=== PATIENT | male | born 1945 | race Caucasian/White ===

== ENCOUNTER 2020-05-16 07:59 | Observation (INO) | payer MEDICARE, SELFPAY ==
--- NOTE | 2020-05-16 | CT_ITS ---
EXAMINATION: CT HEAD WITHOUT CONTRAST CLINICAL INFORMATION: Altered mental status. COMPARISON: None TECHNIQUE: Contiguous axial imaging was performed from the skull base to vertex without intravenous administration of contrast. This CT examination was performed using dose optimization techniques as appropriate, variously including the following: *Automated exposure control *Adjustment of mA and/or kV according to patient size (this includes techniques or standardized protocols for targeted exams where dose is matched to indication/reason for exam; i.e. extremities or head) *Use of iterative reconstruction technique DLP: 897 mGy-cm FINDINGS: Some of the images were motion degraded and repeated. Atherosclerotic calcifications of cavernous carotid arteries. Patchy hypoattenuation within supratentorial white matter of both cerebral hemispheres. 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 The carbajal-white matter differentiation is maintained. No evidence of an acute major vascular territory infarction. No hemorrhage, extra axial fluid collection or focal mass effect. Mild atrophy of cerebral hemispheres with commensurate prominence of the ventricles and sulci. No hydrocephalus. No acute findings in the posterior fossa. The calvarium has an intact appearance. The visualized paranasal sinuses and mastoid air cells are well aerated. IMPRESSION: * No intracranial hemorrhage or other acute intracranial pathology. * Mild cerebral atrophy and fatty suggestive of chronic moderate microangiopathy.
--- NOTE | 2020-05-16 | XR_ITS ---
EXAMINATION: XR CHEST CLINICAL INFORMATION: Chest pain. COMPARISON: None TECHNIQUE: Frontal view of the chest was obtained. FINDINGS: No significant abnormality is noted involving the heart, lungs, mediastinum, or soft tissues. Scoliotic and degenerative spondylosis related changes are noted in the spine. IMPRESSION: No radiographic evidence of acute cardiopulmonary disease.
[2020-05-16 08:11] VITALS: BP 122/80; BP 124/83; PULSE 73; PULSE 76; RESP 14; TEMP 36.5; O2SAT 97; O2SAT 98; BMI 21.2
[2020-05-16 08:18] LABS: Glucose, Whole Blood 93 mg/dL (60-115)
--- NOTE | 2020-05-16 08:23 | ED_ITS ---
HPI - Altered Mental Status General Chief Complaint: Altered Mental Status Time Seen by Provider: 05/16/20 08:12 Source: EMS Mode of arrival: EMS Limitations: altered mental status History of Present Illness HPI narrative: 75 years old man was brought to ER by ambulance because altered mental status. Pt unable to give full hx . I spoke with his girfriend Mariam [id number] who tell me that he got up OK this Am then she found in bed poorly responsive,pale with left arm shaky complaint: altered mental status Onset (ago): hour(s) (1) Timing confirmed by: other (girfriend) Severity: moderate Consistency of symptoms: waxing and waning Treatments prior to arrival: other (none) Related Data Allergies Allergy/AdvReac Type Severity Reaction Status Date / Time No Known Allergies Allergy Verified 05/16/20 08:13 Review of Systems ENT: Denies vertigo Cardiovascular: Cardiovascular: Reports no additional cardiovascular complaints, Denies chest pain, Denies syncope, Denies rapid heart rate and Denies dyspnea on exertion Respiratory: Respiratory: Reports no additional respiratory complaints and Denies dyspnea on exertion Gastrointestinal: Gastrointestinal: Denies abdominal pain Neurologic: Denies vertigo, Denies syncope and Denies focal weakness COUNT INCLUDES THE [facility] Past Medical History Medical History (Updated 05/16/20 @ 08:18 by Katy Williamson) No known health problems No known health problems No known health problems Right wrist fracture Social History Social History Alcohol intake: former Smoking Status: Never smoker Use of substances other than those prescribed or required for medical reasons: No Advance Directives: No Advance Directives Information Provided: Yes Physical Exam Vital Signs: Vital Signs: Vital Signs Temp Pulse Resp BP Pulse Ox 05/16/20 08:11 97.7 F 76 14 122/80 98 Body Mass Index 21.2 on examination he appear somewhat lethargic, he is able to tell me the month he knows that he is in the emergency department Const: Orientation/consciousness: oriented to place and oriented to time HENMT: Head: Yes normal to inspection General nose exam: Normal external nose present Face and sinus: Yes normal facial exam Mouth: Normal oral and palatal mucosa present Eyes: General: appearance normal, both eyes and all related structures Neck: Neck: Yes normal visual inspection, Yes full ROM and Yes no meningeal signs Chest: Chest palpation & inspection: normal inspection of the chest and normal palpation of entire chest wall Resp: Effort & Inspection: normal respiratory effort Cardio: Rate: regular rate Rhythm: regular rhythm GI: Inspection: Yes normal to inspection Palpation (GI): Soft to palpation, nontender and no guarding Skin: Other: pale skin General skin exam: no rashes or lesions noted Rashes: no rashes Neuro: General: oriented to place, oriented to time, no meningeal signs, no focal motor deficits, CN's II-XI intact bilaterally and normal sensation to monofilament Cranial nerves: Yes Bilaterally intact EOM present MDM - Altered Mental Status Lab Data Labs: Lab Results 05/16/20 Range/Units 08:09 POC Glucose 93 (60-115) mg/dL
--- NOTE | 2020-05-16 08:30 | PC.NURSE ---
pt assisted to standing position next to bed to obtain urine sample; pt very unsteady on feet
--- NOTE | 2020-05-16 08:30 | PC.NURSE ---
PT SLEEPY, AROUSABLE TO NAME. ORIENTED TO SELF, PLACE, TIME, BUT NOT TO REASON FOR BEING IN HOSPITAL. DELAY IN RESPONSE TO QUESTIONS AND COMMANDS, BUT SPEECH CLEAR. FACE SYMMETRICAL. + PERRLA. HAND GRASPS EQUAL. NO DRIFT. MOVING ALL EXTREMITIES. DR. ULLOA CALLED PT'S GIRLFRIEND, JAZMIN, WHO CONFIRMED THE REASON PT WAS SENT TO HOSPITAL IS FOR LETHARY AND DELAYED RESPONSE STARTING THIS MORNING WHEN PT WOKE UP.
--- NOTE | 2020-05-16 08:40 | PC.NURSE ---
dr. sarah whitlock with girlfriend, kelli, over phone; girlfriend confirms that pt has no medical diagnoses, has had no surgeries, is on no daily meds.
[2020-05-16 08:42] LABS: MANUAL DIFF FLAG NO
[2020-05-16 08:46] LABS: Basophils Percent Auto 0.9 % (0-2); Eosinophils Absolute Auto 0.1 X10*3/uL (0.0-0.4); Eosinophils Percent Auto 3.3 % (0-4); Hematocrit 39.5 % (42-52); Hemoglobin 12.8 g/dl (14.0-18.0); Imm Gran Abs Auto 0.01 X10*3/uL (0.00-0.03); Imm Gran Pct Auto 0.3 % (0.0-0.4); Lymphocytes Absolute Auto 0.9 X10*3/uL (1.2-4.9); Lymphocytes Percent Auto 25.8 % (20-40); Mean Corpuscular HGB Conc 32.4 g/dl (31.0-36.0); Mean Corpuscular Hemoglobin 31.5 pg (27.0-33.0); Mean Corpuscular Volume 97.3 fL (80-98); Mean Platelet Volume 10.6 fL (9.4-12.4); Monocytes Absolute Auto 0.4 X10*3/uL (0.1-1.2); Monocytes Percent Auto 10.6 % (2-11); Neutrophils Percent Auto 59.1 % (45-73); Platelet Count 178 X10*3/uL (160-400); Red Blood Count 4.06 X10*6/uL (4.60-5.80); Red Cell Distribution Width 13.7 % (11.0-16.0); White Blood Count 3.3 X10*3/uL (4.8-10.8)
[2020-05-16 09:00] LABS: Prothrombin Time 12.4 SEC (10.8-13.0)
[2020-05-16 09:03] LABS: Partial Thromboplastin Time 32.9 SEC (24.1-38.0)
[2020-05-16 09:05] LABS: Alanine Aminotransferase 23 U/L (0-40); Albumin Level 3.8 g/dL (3.5-5.0); Alkaline Phosphatase 73 U/L (39-117); Anion Gap 10 (12-20); Aspartate Amino Transferase 23 U/L (5-37); Bilirubin Total 0.2 mg/dL (0.0-1.0); Blood Urea Nitrogen 11 mg/dL (9-16); Carbon Dioxide 28 mmol/L (22-29); Chloride 108 mmol/L (96-108); Creatinine Clr Calc Pharmacy 64.1; Estimated Glomerular Filt Rate > 60; Glucose Random 78 mg/dL (60-115); Potassium 4.9 mmol/l (3.3-5.1); Sodium 141 mmol/L (135-145); Total Protein 6.1 g/dL (6.5-8.0)
[2020-05-16 09:08] LABS: Glucose Urine UA NEG (NEG); Leukocyte Esterase Urine NEG (NEG); Nitrite Urine NEG (NEG); Specific Gravity - Urine 1.025 (1.005-1.025); Urine Blood NEG (NEG); Urine Ketones NEG (NEG); Urine Protein NEG (NEG-TRACE)
[2020-05-16 09:11] LABS: Appearance Urine CLEAR; Color Urine YELLOW
[2020-05-16 09:11] LABS: Troponin-I High Sensitivity < 3.5 ng/L (<3.5-35.0)
[2020-05-16 10:38] VITALS: BP 156/98; PULSE 67; RESP 16; O2SAT 98
--- NOTE | 2020-05-16 11:08 | PC.NURSE ---
pt sleeping on stretcher in position of comfort, arousable to verbal stimuli. skin wpd. respiratons even and non labored. nsr on monitor. vss. plan to admit pt for observaton, per dr. osborn.
--- NOTE | 2020-05-16 11:33 | P.HPIM_ITS ---
History of Present Illness Date of Service: 05/16/20 <An James NP - Last Filed: 05/16/20 12:33> Chief Complaint: CONFUSION <An James NP - Last Filed: 05/16/20 12:33> 75-year-old man presented to the ER after being found to be unresponsive according to the patient's girlfriend. Patient is somewhat vague and encephalopathic during the examination. He was able to say his name, date and location however his movements seem very slow and he is disrobing himself and he will also pulled out his IV med. One he did state that he felt different today. He denies chest pain, shortness of breath, nausea, vomiting, diarrhea, visual changes, headache, recent trauma. brain CT was obtained which was negative for any acute abnormality. Chest x-ray was negative for consolidation or effusion, urinalysis negative for infection, vital signs are stable patient has no fever no leukocytosis noted actually his labs are all within normal limits. No focal deficits are noted. Will place patient on observation for further management of acute encephalopathy. <An James NP - Last Filed: 05/16/20 12:33> Review of Systems Review of Systems: Denies any recent fever chills or decrease in appetite respiratory denies any shortness of breath coverage production cardiovascular is adjustment of any PND or edema gastrointestinal denies any dysphagia abdominal pain nausea vomiting or diarrhea genitourinary denies any dysuria frequency or hematuria musculoskeletal denies any joint pain or swelling neuropsych denies any weakness or seizures, reported some dizziness. all other systems reviewed are negative <An James NP - Last Filed: 05/16/20 12:33> [facility] Medical History: Medical History (Updated 05/16/20 @ 12:17 by An James NP) Right wrist fracture <An James NP - Last Filed: 05/16/20 12:33> Family History: Family History (Updated 05/16/20 @ 12:18 by An James NP) Mother No problems noted. <An James NP - Last Filed: 05/16/20 12:33> Pertinent family history: mother with diabetes <An James NP - Last Filed: 05/16/20 12:33> Social History: Social History Alcohol intake: former Smoking Status: Never smoker Use of substances other than those prescribed or required for medical reasons: No Advance Directives: No Advance Directives Information Provided: Yes <An James NP - Last Filed: 05/16/20 12:33> Meds Allergies/Adverse reactions: Allergies Allergy/AdvReac Type Severity Reaction Status Date / Time No Known Allergies Allergy Verified 05/16/20 08:13 <An James NP - Last Filed: 05/16/20 12:33> Home medications: Home Medications Medication Instructions Recorded Confirmed Type No Known Home Meds 05/16/20 05/16/20 History <An James NP - Last Filed: 05/16/20 12:33> Physical Exam Vital Signs and Narrative: Vital Signs: Last Vital Signs Temp 97.7 F 05/16/20 08:11 Pulse 67 05/16/20 10:38 Resp 16 05/16/20 10:38 BP 156/98 H 05/16/20 10:38 Pulse Ox 98 05/16/20 10:38 Body Mass Index 21.2 <An James NP - Last Filed: 05/16/20 12:33> Appearing in no acute distress head is normocephalic atraumatic eyes pupils are PERRLA sclera is anicteric mouth throat mucous membranes are intact and moist neck is supple no lymphadenopathy, no JVD noted lung sounds are clear to auscultation heart regular rate rhythm, clear S1, S2 positive bowel sounds, abdomen is soft, nontender neuro patient is alert x3, no focal deficits, normal motor and sensory function <An James NP - Last Filed: 05/16/20 12:33> Results Labs Labs: Laboratory Tests 05/16/20 05/16/20 05/16/20 08:09 08:38 08:38 WBC 3.3 L RBC 4.06 L Hgb 12.8 L Hct 39.5 L MCV 97.3 MCH 31.5 MCHC 32.4 RDW 13.7 Plt Count 178 MPV 10.6 Immature Gran % (Auto) 0.3 Neut % (Auto) 59.1 Lymph % (Auto) 25.8 [place] % (Auto) 10.6 Eos % (Auto) 3.3 Baso % (Auto) 0.9 Lymph # (Auto) 0.9 L [place] # (Auto) 0.4 Eos # (Auto) 0.1 Baso # (Auto) 0.0 Abs Immat Gran (auto) 0.01 Absolute Neuts (auto) 2.0 Absolute Nucleated RBC 0.000 Nucleated RBC % (auto) 0.0 PT 12.4 INR 1.0 APTT 32.9 Sodium Potassium Chloride Carbon Dioxide Anion Gap BUN Creatinine Estim Creat Clear Calc Estimated GFR POC Glucose 93 Random Glucose Calcium Total Bilirubin AST ALT Alkaline Phosphatase Troponin I High Sens Total Protein Albumin Urine Color Urine Appearance Urine pH Ur Specific [place] Urine Protein Urine Glucose (UA) Urine Ketones Urine Blood Urine Nitrite Ur Leukocyte Esterase 05/16/20 05/16/20 05/16/20 08:38 08:38 08:50 WBC RBC Hgb Hct MCV MCH MCHC RDW Plt Count MPV Immature Gran % (Auto) Neut % (Auto) Lymph % (Auto) [place] % (Auto) Eos % (Auto) Baso % (Auto) Lymph # (Auto) [place] # (Auto) Eos # (Auto) Baso # (Auto) Abs Immat Gran (auto) Absolute Neuts (auto) Absolute Nucleated RBC Nucleated RBC % (auto) PT INR APTT Sodium 141 Potassium 4.9 Chloride 108 Carbon Dioxide 28 Anion Gap 10 L BUN 11 Creatinine 0.84 Estim Creat Clear Calc 64.1 Estimated GFR > 60 POC Glucose Random Glucose 78 Calcium 9.0 Total Bilirubin 0.2 AST 23 ALT 23 Alkaline Phosphatase 73 Troponin I High Sens < 3.5 Total Protein 6.1 L Albumin 3.8 Urine Color YELLOW Urine Appearance CLEAR Urine pH 6.0 Ur Specific [place] 1.025 Urine Protein NEG Urine Glucose (UA) NEG Urine Ketones NEG Urine Blood NEG Urine Nitrite NEG Ur Leukocyte Esterase NEG <An James, INCENDIARIES SUPERVISOR - Last Filed: 05/16/20 12:33> Assessment and Plan (1) Acute encephalopathy: Status: Acute <An James NP - Last Filed: 05/16/20 12:33> 75-year-old man placed on observation for acute encephalopathy. At this time there is no outlying diagnosis. She differential diagnosis include stroke, seizure, drug induced although urine toxicologyis pending, infectious source although there is no signs of acute infection at this time, hepatic however LFTs and PT INR normal and patient denies alcohol use. Acute encephalopathy. Unknown etiology at this time. Patient is awake and alert but seems to have some disorientation. He has no fever or leukocytosis. MRI is pending, urine toxicology, creatinine kinase, magnesium, ammonia, urine toxicology, TSH, vitamin B12 all pending. Will place patient on telemetry- monitor for arrhythmia, neuro checks. DVT prophylaxis with Lovenox Discussed with Dr. Chen Full code <An James NP - Last Filed: 05/16/20 12:33>
--- NOTE | 2020-05-16 11:33 | MR_ITS ---
EXAMINATION: MR BRAIN WITHOUT CONTRAST CLINICAL INFORMATION: Encephalopathy. Unresponsive. COMPARISON: CT head from 05/16/2020. TECHNIQUE: MRI of the brain was obtained using routine sequences without contrast. FINDINGS: No focal restricted diffusion is demonstrated to suggest acute or subacute cerebral ischemia. Multiple foci of susceptibility artifact throughout the cerebral hemispheres and cerebellum predominantly along the cerebral cortex and subcortical white matter. The deep nuclei are relatively spared. 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 Moderate to advanced scattered periventricular and deep white matter T2 FLAIR hyperintensities. Proportional prominence of the ventricles and sulcal spaces without evidence of obstructive hydrocephalus. No abnormal mass effect. No extra-axial collection. No abnormal mass effect. No midline shift. Normal appearance of the pituitary gland. The cerebellar tonsils are positioned at the level of the foramen magnum. Normal arterial and venous vascular flow voids are present. Normal, homogeneous marrow signal. Moderate degenerative spondyloarthropathy of the visualized upper cervical spine. Mild degenerative anterolisthesis of C2 on C3. Advanced degenerative disc disease at C4-C5 with mild to moderate degenerative retrolisthesis of C4 on C5. Moderate mucosal thickening of the paranasal sinuses. No signal abnormalities within the mastoids. IMPRESSION: 1. No acute intracranial abnormalities. 2. Multiple foci of susceptibility artifact consistent with petechial microhemorrhages within the cortico-subcortical and cerebellar distributions. There are also regions of cortical superficial siderosis consistent with sequela of chronic subarachnoid hemorrhage. 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 3. Moderate to advanced underlying white matter disease.
--- NOTE | 2020-05-16 11:35 | PC.NURSE ---
pt found attempting to crawl out of bed through side rails. iv and equipment monitor phototypesetting wires pulled out/off. pt states he removed them because i don't need them. pt remains oriented x3, but not to reason for being in hospital. assisted back into bed, placed back on monitor. new iv established, wrapped in cling wrap.
--- NOTE | 2020-05-16 11:59 | PC.NURSE ---
GIRLFRIENJAZMIN [place] : [phone]
[2020-05-16] MEDS: LORazepam 2 MG/ML VIAL 0.25 MG IVPUSH (12:06)
--- NOTE | 2020-05-16 12:25 | PC.NURSE ---
VITALS: 156/93, 71, 97% ON RA, RR 16 (UNABLE TO DOCUMENT VITALS THROUGH WORKLIST AT THIS TIME)
--- NOTE | 2020-05-16 12:30 | PC.NURSE ---
gave report to [facility] rn
[2020-05-16 13:00] LABS: Magnesium 1.9 mg/dL (1.6-2.6); Phosphorus 3.8 mg/dL (2.7-4.5)
[2020-05-16 13:20] LABS: Thyroid Stimulating Hormone 1.53 mIU/mL (0.32-4.0)
[2020-05-16 13:31] VITALS: BP 156/102; PULSE 76; RESP 18; O2SAT 99
[2020-05-16 14:09] VITALS: BMI 20.4
[2020-05-16] MEDS: Enoxaparin Sodium 40 MG/0.4 ML SYRINGE SUBCUT (14:12)
[2020-05-16] MEDS: 0.9 % Sodium Chloride Flush 3 ML SYRINGE IVFLUSH (14:12)
--- NOTE | 2020-05-16 14:36 | PC.NURSE ---
Patient brought up to the unit by transporter. Transporter assisted patient to the bathroom but left patient unattended, RN not aware patient was on unit. Transporter Roosevelt told this RN that he heard patient fall and found patient between the toilet and the wall. Transporter stated he assisted patient back to bed. This RN at bedside to assess patient. Patient denies hitting his head or having pain, states he was reaching for the toilet handle and missed it. No obvious injuries noted. Patient A&Ox person, place, time but disoriented to situation (same mental status as CLINICAL RESOURCE DIRECTOR reported, patient here for altered mental status). HR 76, BP 156/102. An James, JOR[facility] and [facility] supervisor [employer] Champ Bolton notified. No new orders at this time. Patient oriented to the unit, call peter with in reach, patient made high fall risk, bed alarms on, and telesitter placed. Will cont to monitor patient's mental status and cont safety measures.
[2020-05-16 15:43] VITALS: BP 167/106; PULSE 75; RESP 20; TEMP 36.8; O2SAT 98
[2020-05-16 15:56] LABS: Ammonia 26 umol/L (13-55)
--- NOTE | 2020-05-16 18:03 | PM.EVENT ---
Event Note Event Note: attending admission note Patient seen and examined. Case discussed with An James NP. Agree with her history and physical. 75 yo admitted for AMS, baseline unclear. MRI done -- no acute findings, but some chronic changes -- see report will get neurology input obtain information from family -- called [facility], unable to obtain check covid 19 since no clear cut reason for his confusion
[2020-05-16 19:49] LABS: SARS COV2 PCR INHOUSE NEGATIVE (Negative)
[2020-05-17] VITALS: BP 142/92; PULSE 73; RESP 16; TEMP 36.4; O2SAT 97
[2020-05-17] MEDS: 0.9 % Sodium Chloride Flush 3 ML SYRINGE IVFLUSH ×2 (00:18→09:19)
[2020-05-17 03:08] VITALS: BP 137/82; PULSE 63; RESP 16; TEMP 36.1; O2SAT 95
[2020-05-17 06:03] LABS: MANUAL DIFF FLAG NO
[2020-05-17 06:12] LABS: Basophils Percent Auto 0.7 % (0-2); Eosinophils Absolute Auto 0.1 X10*3/uL (0.0-0.4); Eosinophils Percent Auto 3.2 % (0-4); Hematocrit 41.8 % (42-52); Hemoglobin 13.8 g/dl (14.0-18.0); Imm Gran Abs Auto 0.01 X10*3/uL (0.00-0.03); Imm Gran Pct Auto 0.2 % (0.0-0.4); Lymphocytes Absolute Auto 1.2 X10*3/uL (1.2-4.9); Lymphocytes Percent Auto 28.5 % (20-40); Mean Corpuscular Hemoglobin 31.5 pg (27.0-33.0); Mean Corpuscular Volume 95.4 fL (80-98); Mean Platelet Volume 10.8 fL (9.4-12.4); Monocytes Absolute Auto 0.4 X10*3/uL (0.1-1.2); Monocytes Percent Auto 9.3 % (2-11); Neutrophils Absolute Auto 2.5 X10*3/uL (2.0-8.3); Neutrophils Percent Auto 58.1 % (45-73); Platelet Count 204 X10*3/uL (160-400); Red Blood Count 4.38 X10*6/uL (4.60-5.80); Red Cell Distribution Width 13.7 % (11.0-16.0); White Blood Count 4.3 X10*3/uL (4.8-10.8)
[2020-05-17 06:48] LABS: Anion Gap 11 (12-20); Blood Urea Nitrogen 9 mg/dL (9-16); Calcium 8.7 mg/dL (8.4-10.2); Carbon Dioxide 28 mmol/L (22-29); Chloride 107 mmol/L (96-108); Creatinine Clr Calc Pharmacy 70.9; Estimated Glomerular Filt Rate > 60; Glucose Random 77 mg/dL (60-115); Potassium 4.1 mmol/l (3.3-5.1); Sodium 142 mmol/L (135-145)
[2020-05-17 07:38] VITALS: BP 154/90; PULSE 80; RESP 18; TEMP 36.7; O2SAT 96
[2020-05-17 09:05] LABS: Amphetamine Screen Urine Not Detected (Not Detect); Barbiturates, Urine Not Detected (Not Detect); Benzodiazepines Screen Urine Not Detected (Not Detect); Cannabinoid Screen Urine Not Detected (Not Detect); Cocaine Screen Urine Not Detected (Not Detect); Opiate Screen Urine Not Detected (Not Detect); Phencyclidine Screen Urine Not Detected (Not Detect)
--- NOTE | 2020-05-17 13:00 | HO.PM.IMPN ---
Subjective Subjective Date of Service: 05/17/20 Interval History: seen and examined this AM wants to be discharged [id number] including date denies any complaints unsure of the circumstances that shayy him here we reached out to his friend Sarabjit Baer who came to the hospital to see the patient. Sarabjit reports the patietn is at his baseline. Review of Systems General - no fevers or chills Cardiovascular - no chest pain Respiratory - no shortness of breath or cough Abdominal- no abdominal pain, nausea, vomiting, diarrhea Physical Exam Vital Signs: Vital Signs: Vital Signs Temp Pulse Resp BP Pulse Ox 05/17/20 07:38 98.1 F 80 18 154/90 H 96 05/17/20 03:08 97.0 F 63 16 137/82 95 05/17/20 00:00 97.6 F 73 16 142/92 H 97 05/16/20 15:43 98.2 F 75 20 167/106 H 98 05/16/20 13:31 76 18 156/102 H 99 Body Mass Index 20.4 General - no acute distress, appears comfortable Cardiovascular - regular rate and rhythm, S1-S2 Lungs - normal respiratory effort, clear to auscultation bilaterally, no wheezing Abdomen - soft, nontender, no rebound regarding Extremities - no edema bilaterally Neuro - awake and alert, no focal deficits Objective Data Current Medications Generic Name Dose Route Start Last Admin Trade Name Freq PRN Reason Stop Dose Admin Enoxaparin Sodium 40 mg 05/16/20 14:00 05/16/20 14:12 Enoxaparin Sodium 40 Mg/0.4 Ml Syringe SUBCUT 40 mg Q24H [facility] Administration Pharmacy Consult 1 each 05/16/20 11:18 Consult Rx Perform Med Rec MISCELLANE ONCE PRN Consult order Sodium Chloride 3 ml 05/16/20 16:00 05/17/20 09:19 0.9 % Sodium Chloride Flush 3 Ml Syringe IVFLUSH 3 ml QSHIFT [facility] Administration Labs CBC & Chem 7: 05/17/20 04:59 05/17/20 04:59 Assessment and Plan (1) Acute encephalopathy: Status: Acute Assessment and Plan: This is a 75 yo M who has not seen a PCP in multiple decades who presented to The hospital after being brought in by his partner for what was initially reported as lethargy and acute confusion. Patient underwent workup in the emergency room which included blood work as well as CT and MRI imaging of the brain was negative for any acute findings. Patient's family/partner were not able to be contacted and as such he was admitted for workup of his acute encephalopathy. This morning, the patient is fully awake and alert. He is not sure exactly what circumstances brought him here. He has no focal neurological deficits patient's friend, Sarabjit Baer was kind enough to come in to see if the patient was indeed at his baseline. await neurology input given his MRI findings which are chronic. His blood pressure has been elevated but given his age probably not too far from acceptable range. Possible discharge home this afternoon Once seen by Neurology. Discussed with Dr. Gustavo perez
--- NOTE | 2020-05-17 14:13 | PM.EVENT ---
Event Note Event Note: Called by RN ro report that the patient wanted to leave against medical advice. Went to see the patient and he reports that he can no longer wait in the hospital and that hospital bed is hurting his back. Have asked him to wait for neurology to see him but he does not want to wait. Explained to him the risk of leaving against medical advice -- which include and are not limited to: neurological damage and event . Patient is AAOx3. He is able to tell me why he is here. He is competant to make his own medical decisions at this time. He has been seen by a close friend early this AM who tells me that the patient is at baseline self. After multiple attempts to convince the patient to stay were unsuccessful, he has decided to sign out against medical advice.
--- NOTE | 2020-05-17 14:26 | PC.NURSE ---
At 1400 pt stated he was leaving. He kept standing up and setting off stat alarms. He states he wants to get dressed and leave. He stated he cannot be here doing nothing. He stated he was leaving ama. He further states his back is sore from laying in the bed and he needs to get up and move. Dr Chen at the bedside, spoke with pt who still insists on leaving. Pt signed AMA paperwork. IV removed, dressing is c/d/i. Telemetry pack removed. Helped pt dress. Pt then requested to walk on the unit. Pt walked the unit with this rn at his side. Pt has a modified gait which he states is from his back injury from a long time ago. Pt is in his room, calling for a ride from a friend. He agrees to notify staff when he is ready to leave so he can be brought down in a wheelchair. Nursing transmitter supervisor also notified.
[2020-05-18 19:57] LABS: Vitamin B12 321 pg/mL (200-900)
--- NOTE | 2020-05-28 18:29 | PM.EVENT ---
Event Note Event Note: Patient left AMA. Finals discharge diagnosis: 1 acute encephalopathy
== END 2020-05-17 15:21 | disposition left against medical advice (07) ==
LOC: HO.ED 11:18 → HO.IMC 11:47
PROVIDERS: Nurse Practitioner Acute Care; Admitting Provider Family Medicine; Emergency Provider Emergency Medicine; Visit Provider Family Medicine
DX: G93.40 Encephalopathy, unspecified (principal); R41.82 Altered mental status, unspecified; R07.9 Chest pain, unspecified; Z53.29 Procedure and treatment not carried out because of patient's decision for other reasons
CPT/HCPCS: 36415; 70450; 70551; 71045; 80048; 80053; 80307; 81003; 82140; 82550; 82607; 82947; 83735; 84100; 84443; 84484; 85025; 85610; 85730; 87635; 96372; 96374; 99219; 99285; J1650